=== PATIENT | male | born 1980 | race Caucasian/White ===

== ENCOUNTER 2017-05-25 21:47 | Inpatient (IN) | payer OTHER ==
[2017-05-25 22:08] LABS: ADD MAN DIFF? NO
[2017-05-25 22:12] LABS: BASO # 0.1 x10^3/uL (0.0-0.2); BASO % 1 % (0-3); EOS # 0.1 x10^3/uL (0.0-0.7); EOS % 1 % (0-3); HEMATOCRIT 46.8 % (39.0-53.0); LYMPH # 1.7 x10^3/uL (1.0-4.8); LYMPH % 18 % (24-48); MEAN CORPUSCULAR HEMOGLOBIN 31 pg (25-35); MEAN CORPUSCULAR HGB CONC 34 g/dL (31-37); MEAN CORPUSCULAR VOLUME 90 fL (79-100); MONO # 0.7 x10^3/uL (0.0-1.1); MONO % 8 % (0-9); NEUT # 6.9 x10^3uL (1.8-7.7); NEUT % 72 % (31-73); PLATELET COUNT 196 x10^3/uL (140-400); RED BLOOD COUNT 5.23 x10^6/uL (4.30-5.70); RED CELL DISTRIBUTION WIDTH 13.6 % (11.5-14.5); WHITE BLOOD COUNT 9.5 x10^3/uL (4.0-11.0)
[2017-05-25 22:20] LABS: PARTIAL THROMBOPLASTIN TIME 30 SEC (24-38); PROTHROMBIN TIME PATIENT 12.7 SEC (11.7-14.0)
[2017-05-25 22:23] LABS: D-DIMER 0.27 ug/mlFEU (0.00-0.50)
[2017-05-25 22:24] LABS: ANION GAP 11 (6-14); BLOOD UREA NITROGEN 5 mg/dL (8-26); BUN/CREATININE RATIO 6 (6-20); CALCIUM 8.6 mg/dL (8.5-10.1); CARBON DIOXIDE 23 mmol/L (21-32); CHLORIDE 98 mmol/L (98-107); CREATININE 0.9 mg/dL (0.7-1.3); GLUCOSE 94 mg/dL (70-99); POTASSIUM 3.7 mmol/L (3.5-5.1); SODIUM 132 mmol/L (136-145)
[2017-05-25 22:30] LABS: ALBUMIN/GLOBULIN RATIO 1.3 (1.0-1.7); ALK PHOS 104 U/L (46-116); ALT (SGPT) 40 U/L (16-63); AST (SGOT) 21 U/L (15-37); MAGNESIUM 1.6 mg/dL (1.8-2.4); TOTAL BILIRUBIN 0.4 mg/dL (0.2-1.0)
[2017-05-25] MEDS ORDERED: fentaNYL PF VIAL 100 MCG/2 ML VIAL IV (22:30)
[2017-05-25] MEDS ORDERED: ONDANSETRON PF 4 MG/2 ML VIAL. IV (22:30)
[2017-05-25] MEDS: NITROGLYCERIN SUBLINGUAL 0.4 MG BOTTLE OF 25. SL (22:32)
[2017-05-25] MEDS: fentaNYL PF VIAL 100 MCG/2 ML VIAL IV (22:33)
[2017-05-25] MEDS: ONDANSETRON PF 4 MG/2 ML VIAL. IV (22:33)
[2017-05-25 22:34] LABS: TROPONINI < 0.017 ng/mL (0.000-0.055)
[2017-05-25 22:35] LABS: NT-PRO BNP 65 pg/mL (0-124)
[2017-05-25] MEDS: NITROGLYCERIN OINT 1 GM PACKET. TP (22:38)
[2017-05-25] MEDS: MAGNESIUM OXIDE 400 MG TABLET PO (23:07)
[2017-05-26 04:55] LABS: ADD MAN DIFF? NO
[2017-05-26 05:21] LABS: BASO # 0.1 x10^3/uL (0.0-0.2); BASO % 1 % (0-3); EOS # 0.1 x10^3/uL (0.0-0.7); EOS % 1 % (0-3); HEMATOCRIT 46.9 % (39.0-53.0); HEMOGLOBIN 15.9 g/dL (13.0-17.5); LYMPH # 1.2 x10^3/uL (1.0-4.8); LYMPH % 15 % (24-48); MEAN CORPUSCULAR HEMOGLOBIN 30 pg (25-35); MEAN CORPUSCULAR HGB CONC 34 g/dL (31-37); MEAN CORPUSCULAR VOLUME 89 fL (79-100); MONO # 0.8 x10^3/uL (0.0-1.1); MONO % 10 % (0-9); NEUT # 6.1 x10^3uL (1.8-7.7); NEUT % 74 % (31-73); PLATELET COUNT 187 x10^3/uL (140-400); RED BLOOD COUNT 5.29 x10^6/uL (4.30-5.70); RED CELL DISTRIBUTION WIDTH 13.3 % (11.5-14.5); WHITE BLOOD COUNT 8.3 x10^3/uL (4.0-11.0)
[2017-05-26 05:36] LABS: ANION GAP 10 (6-14); BLOOD UREA NITROGEN 6 mg/dL (8-26); CALCIUM 8.4 mg/dL (8.5-10.1); CARBON DIOXIDE 25 mmol/L (21-32); CHLORIDE 99 mmol/L (98-107); CREATININE 0.9 mg/dL (0.7-1.3); GLUCOSE 105 mg/dL (70-99); SODIUM 134 mmol/L (136-145)
[2017-05-26 05:48] LABS: TROPONINI < 0.017 ng/mL (0.000-0.055)
[2017-05-26 10:13] LABS: MAGNESIUM 1.8 mg/dL (1.8-2.4)
[2017-05-26 10:18] LABS: CHOLESTEROL 168 mg/dL (0-200); HDLC 34 mg/dL (40-60); LDLC 116 mg/dL (0-100); NON-HDL CHOLESTEROL 134 mg/dL (0-129); TRIGLYCERIDES 89 mg/dL (0-150); VLDLC 18 mg/dL (0-40)
[2017-05-26 10:20] LABS: CHOLESTEROL/HDL RATIO 4.9
[2017-05-26] MEDS: ACETAMINOPHEN 325 MG TABLET. PO (10:24)
[2017-05-26 10:28] LABS: THYROID STIM HORMONE (TSH) 1.187 uIU/mL (0.358-3.74)
[2017-05-26] MEDS ORDERED: hydrALAZINE 20 MG/ML VIAL. IVP (10:30)
[2017-05-26 11:17] LABS: TROPONINI < 0.017 ng/mL (0.000-0.055)
[2017-05-26] MEDS: REGADENOSON 0.4 MG/5 ML DISP.SYRIN. IV ×2 (11:45→11:50)
[2017-05-26] MEDS: CARVEDILOL 3.125 MG TABLET. PO ×2 (16:33→17:19)
[2017-05-26] MEDS: ASPIRIN ENTERIC COATED 81 MG TABLET.DR. PO (17:19)
[2017-05-26 20:35] LABS: AMPHETAMINE/METHAMPHETAMINE NEG (NEG); BARBITURATES NEG (NEG); BENZODIAZEPINES NEG (NEG); CANNABINOIDS NEG (NEG); COCAINE NEG (NEG); ETHANOL, URINE NEG (NEG); METHADONE NEG (NEG); OPIATES NEG (NEG); PHENCYCLIDINE NEG (NEG)
[2017-05-26] MEDS: ASA/APAP/CAFFEINE 250/250/65MG TABLET. PO (21:47)
[2017-05-26] MEDS: guaiFENesin DM 200MG/20MG 10 ML SYRUP PO (21:47)
[2017-05-27] MEDS: guaiFENesin DM 200MG/20MG 10 ML SYRUP PO ×2 (09:00→23:40)
[2017-05-27] MEDS: ASPIRIN ENTERIC COATED 81 MG TABLET.DR. PO (09:01)
[2017-05-27] MEDS: ACETAMINOPHEN 325 MG TABLET. PO ×2 (09:01→18:15)
[2017-05-27] MEDS: CARVEDILOL 3.125 MG TABLET. PO ×2 (09:01→18:15)
[2017-05-27 09:49] LABS: INFLUENZA A PATIENT NEGATIVE (NEGATIVE); INFLUENZA B PATIENT POSITIVE (NEGATIVE); OBC FLU VALID
[2017-05-27] MEDS: OSELTAMIVIR 75 MG CAPSULE PO ×2 (10:38→21:43)
[2017-05-27] MEDS: ASA/APAP/CAFFEINE 250/250/65MG TABLET. PO (14:31)
[2017-05-28] MEDS: ASPIRIN ENTERIC COATED 81 MG TABLET.DR. PO (10:24)
[2017-05-28] MEDS: ACETAMINOPHEN 325 MG TABLET. PO (10:24)
[2017-05-28] MEDS: OSELTAMIVIR 75 MG CAPSULE PO (10:25)
[2017-05-28] MEDS: CARVEDILOL 3.125 MG TABLET. PO (10:25)
== END 2017-05-28 17:42 | disposition home or self-care (01) | DRG 392 ==
LOC: ED HOLD 22:42 → 5 SOUTH 05-26 15:35 → ER 21:47
DX: K21.9 Gastro-esophageal reflux disease without esophagitis (principal); E66.01 Morbid (severe) obesity due to excess calories; Z68.42 Body mass index [BMI] 45.0-49.9, adult; J11.1 Influenza due to unidentified influenza virus with other respiratory manifestations; E83.42 Hypomagnesemia; F17.210 Nicotine dependence, cigarettes, uncomplicated; G47.33 Obstructive sleep apnea (adult) (pediatric); I10 Essential (primary) hypertension; R07.89 Other chest pain; R06.4 Hyperventilation; Z88.6 Allergy status to analgesic agent; Z82.49 Family history of ischemic heart disease and other diseases of the circulatory system; Z88.1 Allergy status to other antibiotic agents; Z82.3 Family history of stroke; Z91.14 Patient's other noncompliance with medication regimen
CPT/HCPCS: 36415; 71045; 78452; 80048; 80053; 80061; 80307; 83735; 83880; 84443; 84484; 85025; 85379; 85610; 85730; 87804; 87804-59; 93005; 93017; 93306; 96374; 96375; 99285; 99285-25; 99406; A9500; J2405; J2785; J3010